=== PATIENT | female | born 1980 | race Caucasian/White ===

== ENCOUNTER → 2017-05-02 | Outpatient (CLI) | payer OTHER ==
--- NOTE | 2017-05-02 16:31 | DIAGNOSTIC IMAGING REPORT ---
MRI OF THE RIGHT WRIST WITHOUT IV CONTRAST CLINICAL HISTORY: Recent fall with right wrist pain. COMPARISON STUDY: No priors. TECHNIQUE: MRI of the right wrist is performed utilizing various T1 and T2-weighted sequences in the axial, sagittal, and coronal planes. IV contrast was not administered for this examination. The examination is degraded by motion artifact. Interpretation is suboptimal without plain film correlate. FINDINGS: There is marrow edema identified within the the triquetrum, greatest along the ulnar aspect of the bone. A triquetral fracture is suspected. The fracture itself was not visualized due to motion artifact. No additional foci of marrow signal abnormality are identified. There is a small joint effusion. There is subcutaneous soft tissue seen along the dorsal and ulnar aspect of the wrist. There is tendinopathy with fluid surrounding the tendon sheaths of the extensor carpi ulnaris and extensor digiti minimi tendons consistent with tendinopathy and tenosynovitis. The fibers are intact. The remaining flexor and extensor tendons are normal in appearance. The triangular fibrocartilage appears intact. No fluid is seen in the distal radioulnar joint. IMPRESSION: 1. Significantly motion compromised examination. Interpretation is also suboptimal without plain film correlate. 2. There is marrow edema identified within the triquetrum, likely related to triquetral fracture. The fracture itself was not visualized. Radiographic correlation is recommended. 3. Soft tissue edema is seen along the dorsal and ulnar aspect of the wrist. 4. There is tendinopathy and tenosynovitis seen involving the extensor carpi ulnaris and the extensor digiti minimi tendons. The fibers remain intact. 5. The triangular fibrocartilage is intact as visualized. Dictated: 05/02/2017 3:41 PM Transcribed: 05/02/2017 4:31 PM [place] Electronically signed by: Elvin Deshpande M.D. 05/03/2017 8:26 AM Dictated Date/Time: 05/02/2017 3:41 PM
== END | disposition home or self-care (01) ==
LOC: C.MRI 14:30
PROVIDERS: ATTEND Orthopaedic Surgery Orthopaedic Surgery of the Spine
DX: M25.531 Pain in right wrist (principal); R60.0 Localized edema; M65.841 Other synovitis and tenosynovitis, right hand